=== PATIENT | male | born 1985 | race Caucasian/White ===

== ENCOUNTER 2022-08-07 15:40 | Day surgery (SDC) | payer MEDICARE ==
[2012-09-05 03:30] VITALS: BP 139/79
[2022-08-07] MEDS ORDERED: BUPIVACAINE 0.5% VIAL IJ ONE (15:41)
[2022-08-07] MEDS ORDERED: Depo-Medrol 40 MG/ML IM ONE (15:41)
[2022-08-07] MEDS ORDERED: Lactated Ringers 1,000 ML IV ONE (17:37)
[2022-08-07] MEDS ORDERED: DIPRIVAN 200 MG/20 ML IV ONE (17:45)
--- NOTE | 2022-08-07 18:44 | XRAY ---
Indication: Bilateral L4-S1 MBB. Intraoperative fluoroscopy provided for 12 seconds. Single digital spot image submitted for interpretation demonstrates posterior needle tips projecting over the expected left and right L4-S1 nerve roots. Correlate with intraoperative findings/report.
--- NOTE | 2022-08-08 08:42 | XRAY ---
12 seconds of fluoroscopy was used in surgery for a bilateral L4-S1 MBB.
== END 2022-08-07 18:10 | disposition home or self-care (01) ==
LOC: SDC-PAIN 15:40
PROVIDERS: ATTEND Psychiatry & Neurology Pain Medicine
DX: M47.816 Spondylosis without myelopathy or radiculopathy, lumbar region (principal); Z79.899 Other long term (current) drug therapy
CPT/HCPCS: 64493; 64494; 72020; 77002; J1030; J2704

== ENCOUNTER 2022-09-04 12:50 | Day surgery (SDC) | payer MEDICARE ==
[2012-09-05 03:30] VITALS: BP 139/79
[2022-09-04] MEDS ORDERED: BUPIVACAINE 0.5% VIAL IJ ONE (12:51)
[2022-09-04] MEDS ORDERED: Depo-Medrol 40 MG/ML IM ONE (12:51)
[2022-09-04] MEDS ORDERED: BENADRYL 50 MG/ML ONE (13:20)
[2022-09-04] MEDS ORDERED: Zofran 4 MG/2 ML VIAL ONE (13:20)
[2022-09-04] MEDS ORDERED: TORAdol 30 mg Injection ONE (13:20)
[2022-09-04] MEDS ORDERED: DIPRIVAN 200 MG/20 ML IV ONE (15:33)
[2022-09-04] MEDS ORDERED: Lactated Ringers 1,000 ML IV ONE (16:44)
--- NOTE | 2022-09-04 16:53 | XRAY ---
Indication: Bilateral L3-L5 MBB. Intraoperative fluoroscopy provided for 12 seconds. Single digital spot image submitted for interpretation demonstrates posterior needle tips projecting over the expected left and right L3-L5 nerve roots. Correlate with intraoperative findings/report.
--- NOTE | 2022-09-04 17:30 | XRAY ---
12 seconds fluoroscopy was used in surgery for a bilateral L3-L5 MBB.
== END 2022-09-04 16:05 | disposition home or self-care (01) ==
LOC: SDC-PAIN 12:50
PROVIDERS: ATTEND Psychiatry & Neurology Pain Medicine
DX: M47.816 Spondylosis without myelopathy or radiculopathy, lumbar region (principal); Z79.899 Other long term (current) drug therapy
CPT/HCPCS: 64493; 64494; 72020; 77002; J1030; J1200; J1885; J2405; J2704

== ENCOUNTER 2022-10-02 12:52 | Day surgery (SDC) | payer MEDICARE ==
[2012-09-05 03:30] VITALS: BP 139/79
[2022-10-02] MEDS ORDERED: BUPIVACAINE 0.5% VIAL IJ ONE (12:53)
[2022-10-02] MEDS ORDERED: Depo-Medrol 40 MG/ML IM ONE (12:53)
[2022-10-02] MEDS ORDERED: Zofran 4 MG/2 ML VIAL ONE (14:19)
[2022-10-02] MEDS ORDERED: BENADRYL 50 MG/ML ONE (14:19)
[2022-10-02] MEDS ORDERED: DIPRIVAN 200 MG/20 ML IV ONE (15:42)
[2022-10-02] MEDS ORDERED: Lactated Ringers 1,000 ML IV ONE (16:35)
--- NOTE | 2022-10-02 16:56 | XRAY ---
Indication: Bilateral L3-L5 MBB. Intraoperative fluoroscopy provided for 9 seconds. Single digital spot images submitted for interpretation demonstrates posterior needle tips projecting over the expected left and right L3-L5 nerve roots. Correlate with intraoperative findings/report.
--- NOTE | 2022-10-02 20:24 | XRAY ---
9 seconds of fluoroscopy was used in surgery for a bilateral L3-L5 MBB.
== END 2022-10-02 16:00 | disposition home or self-care (01) ==
LOC: SDC-PAIN 12:52
PROVIDERS: ATTEND Psychiatry & Neurology Pain Medicine
DX: M47.816 Spondylosis without myelopathy or radiculopathy, lumbar region (principal); Z79.899 Other long term (current) drug therapy
CPT/HCPCS: 64493; 64494; 72020; 77002; J1030; J1200; J2405; J2704

== ENCOUNTER 2022-10-30 15:05 | Day surgery (SDC) | payer MEDICARE ==
[2012-09-05 03:30] VITALS: BP 139/79
[2022-10-30] MEDS ORDERED: BUPIVACAINE 0.5% VIAL IJ ONE (15:06)
[2022-10-30] MEDS ORDERED: LIDOCAINE HCL 1% 50 MG/5 ML VL PF IJ ONE (15:06)
[2022-10-30] MEDS ORDERED: Depo-Medrol 40 MG/ML IM ONE (15:06)
[2022-10-30] MEDS ORDERED: Zofran 4 MG/2 ML VIAL ONE (16:53)
[2022-10-30] MEDS ORDERED: BENADRYL 50 MG/ML ONE (16:53)
[2022-10-30] MEDS ORDERED: Lactated Ringers 1,000 ML IV ONE (17:08)
[2022-10-30] MEDS ORDERED: DIPRIVAN 200 MG/20 ML IV ONE (18:12)
--- NOTE | 2022-10-30 20:51 | XRAY ---
Indication: Left L4-S1 RFA. Intraoperative fluoroscopy provided for 17 seconds. 3 digital spot image submitted for interpretation demonstrates posterior needle tips projecting over the expected left L4-S1 nerve roots. Correlate with intraoperative findings/report.
--- NOTE | 2022-10-31 08:35 | XRAY ---
17 seconds of fluoroscopy was used in surgery for a left L4-S1 RFA.
== END 2022-10-30 18:50 | disposition home or self-care (01) ==
LOC: SDC-PAIN 15:05
PROVIDERS: ATTEND Psychiatry & Neurology Pain Medicine
DX: M47.816 Spondylosis without myelopathy or radiculopathy, lumbar region (principal); Z79.899 Other long term (current) drug therapy
CPT/HCPCS: 64635; 64636; 72100; 77002; J1030; J1200; J2001; J2405; J2704

== ENCOUNTER 2022-11-06 14:52 | Day surgery (SDC) | payer MEDICARE ==
[2012-09-05 03:30] VITALS: BP 139/79
[2022-11-06] MEDS ORDERED: BUPIVACAINE 0.5% VIAL IJ ONE (14:53)
[2022-11-06] MEDS ORDERED: Depo-Medrol 40 MG/ML IM ONE (14:53)
[2022-11-06] MEDS ORDERED: LIDOCAINE HCL 1% 50 MG/5 ML VL PF IJ ONE (14:53)
[2022-11-06] MEDS ORDERED: Zofran 4 MG/2 ML VIAL ONE (15:39)
[2022-11-06] MEDS ORDERED: BENADRYL 50 MG/ML ONE (15:40)
[2022-11-06] MEDS ORDERED: Lactated Ringers 1,000 ML IV ONE (17:34)
[2022-11-06] MEDS ORDERED: DIPRIVAN 200 MG/20 ML IV ONE ×2 (17:37→17:43)
--- NOTE | 2022-11-06 19:24 | XRAY ---
Indication: Right L4-S1 RFA. Intraoperative fluoroscopy provided for 21 seconds. 3 digital spot image submitted for interpretation demonstrates posterior needle tips projecting over the expected right L4-S1 nerve roots. Correlate with intraoperative findings/report.
--- NOTE | 2022-11-07 08:33 | XRAY ---
21 seconds of fluoroscopy was used in surgery for a right L4-S1 RFA.
== END 2022-11-06 18:10 | disposition home or self-care (01) ==
LOC: SDC-PAIN 14:52
PROVIDERS: ATTEND Psychiatry & Neurology Pain Medicine
DX: M47.816 Spondylosis without myelopathy or radiculopathy, lumbar region (principal); Z79.899 Other long term (current) drug therapy
CPT/HCPCS: 64635; 64636; 72100; 77002; J1030; J1200; J2001; J2405; J2704

== ENCOUNTER 2023-10-28 09:44 | Emergency (ER) | payer MEDICARE ==
--- NOTE | 2023-10-28 10:16 | ERPHSYRPT ---
- History of Present Illness Time Seen by Provider: 10/28/23 10:36 Source: patient Physician History: Patient is a 37-year-old male presents to our ED as a referral from his pain specialist for a CT head. Patient rates his pain 5 out of 10. No trauma no fever. No nausea no vomiting no neck pain no photophobia no nuchal rigidity. No associated chest pain or shortness of breath. Patient voices no other complaints or concerns at this time. Portions of this note were created with voice recognition technology. There may be grammatical, spelling, punctuation or sound alike errors Timing/Duration: today Severity: moderate Modifying Factors: Improves With: nothing Associated Symptoms: denies symptoms Allergies/Adverse Reactions: strawberries Allergy (Uncoded 10/28/23 10:08) Home Medications: Hydrocodone/Acetaminophen [Roper 10-325 Tablet] 1 each PO Q4H PRN PRN 10/28/23 [History] Hx Tetanus, Diphtheria Vaccination/Date Given: Yes Hx Influenza Vaccination/Date Given: No Hx Pneumococcal Vaccination/Date Given: No - Review of Systems Constitutional: No Symptoms, No Fever, No Chills Eyes: No Symptoms Ears, Nose, & Throat: No Symptoms Respiratory: No Symptoms, No Cough, No Dyspnea Cardiac: No Symptoms, No Chest Pain, No Edema, No Syncope Abdominal/Gastrointestinal: No Symptoms, No Abdominal Pain, No Nausea, No Vomiting, No Diarrhea Genitourinary Symptoms: No Symptoms, No Dysuria Musculoskeletal: No Symptoms, No Back Pain, No Neck Pain Skin: No Symptoms, No Rash Neurological: No Symptoms, No Dizziness, No Focal Weakness, No Sensory Changes Psychological: No Symptoms Endocrine: No Symptoms Hematologic/Lymphatic: No Symptoms Immunological/Allergic: No Symptoms All Other Systems: Reviewed and Negative - Past Medical History Pertinent Past Medical History: No - Past Surgical History Past Surgical History: No - Social History Smoking Status: Never smoker Exposure to second hand smoke: Yes Drug Use: none Patient Lives Alone: No - Nursing Vital Signs Nursing Vital Signs: Initial Vital Signs Temperature 97.6 F 10/28/23 10:14 Pulse Rate 99 H 10/28/23 10:14 Respiratory Rate 20 10/28/23 10:14 Blood Pressure 120/82 10/28/23 10:14 O2 Sat by Pulse Oximetry 99 10/28/23 10:14 Pain Scale Pain Intensity 5 - Physical Exam General Appearance: no apparent distress, alert Eye Exam: PERRL/EOMI, eyes nml inspection Ears, Nose, Throat Exam: normal ENT inspection, TMs normal, pharynx normal, moist mucous membranes Neck Exam: normal inspection, non-tender, supple, full range of motion Respiratory Exam: normal breath sounds, lungs clear, airway intact, No respiratory distress Cardiovascular Exam: regular rate/rhythm, normal heart sounds, normal peripheral pulses Gastrointestinal/Abdomen Exam: soft, normal bowel sounds, No tenderness, No mass Back Exam: normal inspection, normal range of motion, No CVA tenderness, No vertebral tenderness Extremity Exam: normal inspection, normal range of motion, pelvis stable Neurologic Exam: alert, oriented x 3, cooperative, normal mood/affect, nml cerebellar function, nml station & gait, sensation nml, No motor deficits Skin Exam: normal color, warm, dry, No rash Lymphatic Exam: No adenopathy SpO2 Interpretation: normal SpO2: 99 O2 Delivery: Room Air - Course Nursing assessment & vital signs reviewed: Yes - CT Exams Head CT Interpretation: Tele-radiologist Report (Normal CT head without contrast) Ordered Tests: Active Orders 24 hr Category Date Time Status HEAD WITHOUT CONTRAST [CT] Stat Exams 10/28/23 10:07 Completed - Progress Progress: improved Progress Note: 37-year-old male presents to our ED from pain specialist for CT head. CT head completed. No acute findings observed. Physical exam essentially nonremarkable. At discharge patient reports that he has been feeling anxious. Patient unable to schedule a appointment with his family physician in a meaningful timeframe. We are attempting to contact patient's family physician to see if we can help him obtain an earlier appointment. Father at bedside. They voiced no other complaints or concerns at this time. They have a follow-up appointment with Dr. Hudson patient pain doctor scheduled for this afternoon. Vital stable Portions of this note were created with voice recognition technology. There may be grammatical, spelling, punctuation or sound alike errors Complexity problem addressed is moderate acute complicated Complexity of data reviewed and analyzed is moderate. Test ordered test reviewed results analyzed and correlated with history and physical exam. We discussed the case with Dr. Hudson the referring physician. He requested a CT head only \ risk complication and or risk of morbidity/mortality of patient management is low Vital stable. Time spent discharge patient is approximately 20 minutes. We attempted to contact patient's family doctor for follow-up visit. Plan of care established for shared decision making. No social determinants of health present impede follow-up. Portions of this note were created with voice recognition technology. There may be grammatical, spelling, punctuation or sound alike error 10/28/23 11:07 Counseled pt/family regarding: lab results, diagnosis - Departure Departure Disposition: Home Clinical Impression: Headache Condition: Stable Critical Care Time: No Referrals: LEON MCKNIGHT MD [Primary Care Provider] - Follow up/PCP as directed Additional Instructions: Discharge/Care Plan NAVEEN MARIE was seen on 10/28/23 in the Emergency Room. The patient was counseled regarding Diagnosis,Lab results, Imaging studies, need for follow up and when to return to the Emergency Room. Prescriptions given: Discharge Note I have spoken with the patient and/or caregivers. I have explained the patient's condition, diagnosis and treatment plan based on the information available to me at this time. I have answered the patient's and/or caregiver's questions and addressed any concerns. The patient and/or caregivers have as good understanding of the patient's diagnosis, condition and treatment plan as can be expected at this point. The vital signs have been stable. The patient's condition is stable and appropriate for discharge from the emergency department. The patient will pursue further outpatient evaluation with the primary care physician or other designated or consulting physician as outlined in the discharge instructions. The patient and/or caregivers are agreeable to this plan of care and follow-up instructions have been explained in detail. The patient and/or caregivers have received these instruction. The patient/and or caregivers are aware that any significant change in condition or worsening of symptoms should prompt an immediate return to this or the closest emergency department or call 911.
--- NOTE | 2023-10-28 10:45 | XRAY ---
Indication: Headache. Multiple contiguous axial images obtained through the head without contrast. Comparison: None Normal appearing brain parenchyma, ventricles, and bony calvarium. Visualized paranasal sinuses and mastoid air cells are clear. Impression: Normal CT head without contrast exam.
[2023-10-28 10:46] VITALS: RESP 20; TEMP 97.6; O2SAT 99
[2023-10-28 11:13] VITALS: BP 118/76
[2023-10-28 11:14] VITALS: PULSE 90
== END 2023-10-28 11:37 | disposition home or self-care (01) ==
LOC: ED 09:44
DX: R51.9 Headache, unspecified (principal); Z79.891 Long term (current) use of opiate analgesic
CPT/HCPCS: 70450; 99283

== ENCOUNTER 2024-08-26 14:23 | Day surgery (SDC) | payer MEDICARE ==
[2012-09-05 03:30] VITALS: BP 139/79
[2024-08-26] MEDS ORDERED: Depo-Medrol 40 MG/ML IM ONE (14:24)
[2024-08-26] MEDS ORDERED: BUPIVACAINE 0.5% VIAL IJ ONE (14:24)
[2024-08-26] MEDS ORDERED: LIDOCAINE HCL 1% AMPUL 5 ML IJ ONE (14:24)
[2024-08-26] MEDS ORDERED: Reglan 10 MG/2 ML ONE (15:01)
[2024-08-26] MEDS ORDERED: BENADRYL 50 MG/ML ONE (15:01)
[2024-08-26] MEDS ORDERED: Zofran 4 MG/2 ML VIAL ONE (15:01)
[2024-08-26] MEDS ORDERED: DIPRIVAN 200 MG/20 ML IV ONE (15:53)
--- NOTE | 2024-08-26 16:33 | XRAY ---
Indication: Right L4-S1 RFA. Intraoperative fluoroscopy provided for 10 seconds. 3 digital spot image submitted for interpretation demonstrates posterior needle tips projecting over the expected right L4-S1 nerve roots. Correlate with intraoperative findings/report.
--- NOTE | 2024-08-26 16:44 | XRAY ---
10 seconds of fluoroscopy was used in surgery for a right L4-S1 RFA.
== END 2024-08-26 16:24 | disposition home or self-care (01) ==
LOC: SDC-PAIN 14:23
PROVIDERS: ATTEND Psychiatry & Neurology Pain Medicine
DX: M47.816 Spondylosis without myelopathy or radiculopathy, lumbar region (principal)
CPT/HCPCS: 64635; 64636; 72100; 77002; J1200; J2405; J2704

== ENCOUNTER 2024-09-01 11:36 | Day surgery (SDC) | payer MEDICARE ==
[2012-09-05 03:30] VITALS: BP 139/79
[2024-09-01] MEDS ORDERED: BUPIVACAINE 0.5% VIAL IJ ONE (11:37)
[2024-09-01] MEDS ORDERED: LIDOCAINE HCL 1% AMPUL 5 ML IJ ONE (11:37)
[2024-09-01] MEDS ORDERED: Depo-Medrol 40 MG/ML IM ONE (11:37)
[2024-09-01] MEDS ORDERED: Reglan 10 MG/2 ML ONE (12:27)
[2024-09-01] MEDS ORDERED: Zofran 4 MG/2 ML VIAL ONE (12:27)
[2024-09-01] MEDS ORDERED: BENADRYL 50 MG/ML ONE (12:27)
[2024-09-01] MEDS ORDERED: DIPRIVAN 200 MG/20 ML IV ONE (13:36)
--- NOTE | 2024-09-01 14:25 | XRAY ---
Indication: Left L4-S1 RFA. Intraoperative fluoroscopy provided for 16 seconds. 4 digital spot image submitted for interpretation demonstrates posterior needle tips projecting over the expected left L4-S1 nerve roots. Correlate with intraoperative findings/report.
--- NOTE | 2024-09-01 14:54 | XRAY ---
16 seconds of fluoroscopy was used in surgery for a left L4-S1 RFA.
== END 2024-09-01 14:10 | disposition home or self-care (01) ==
LOC: SDC-PAIN 11:36
PROVIDERS: ATTEND Psychiatry & Neurology Pain Medicine
DX: M47.817 Spondylosis without myelopathy or radiculopathy, lumbosacral region (principal)
CPT/HCPCS: 72100; 77002; J1200; J2405; J2704